=== PATIENT | male | born 1985 | race Caucasian/White ===

== ENCOUNTER 2023-09-21 15:11 | Outpatient (CLI) | payer BC, SELFPAY ==
--- NOTE | ~2023-09-21 | CT_ITS ---
EXAMINATION: CT brain wo con DATE: 09/21/2023 15:29 INDICATION: Dizziness TECHNIQUE: Computed tomography (CT) of the head was performed without intravenous contrast. The mA wa s adjusted according to patient size. Iterative reconstruction technique was employed. Exam dose: 60 5.33 mGy-cm total exam DLP. COMPARISON: None FINDINGS: No intracranial mass lesion or hemorrhage or cerebrovascular accident. No midline shift or mass effect. Normal ventricular size. No subdural or epidural hematoma. The orbital contents are unremarkable. The included mastoid air cells and paranasal sinuses are normally developed and aerated. No fracture or bone destruction of the cranial vault. IMPRESSION: Negative Reviewed, dictated and finalized at [facility] Reviewed, dictated and finalized at [facility]. IMPRESSION: Negative
== END 2023-09-21 15:12 | disposition home or self-care (01) ==
LOC: ANHIMG 15:12
PROVIDERS: Visit Provider Nurse Practitioner Family
DX: R42 Dizziness and giddiness (principal)
CPT/HCPCS: 70450

== ENCOUNTER 2023-10-06 00:19 | Emergency (ER) | payer BC, SELFPAY ==
--- NOTE | ~2023-10-06 | CT_ITS ---
Non-contrast CT scan of the Abdomen and Pelvis Clinical indication: Left ureteral stone Technique: 2.5 mm axial scans were obtained through the abdomen and pelvis without intravenous or or al contrast. Dose reduction technique was used on this scan by utilizing automated exposure control a nd iterative reconstruction technique. The dose-length product (DLP) was 605.40 mGy-cm. Findings: Images through the lung bases reveal no abnormalities. There is a 4 mm distal left ureteral stone. No hydronephrosis. No other renal or ureteral stones seen . No right hydronephrosis. The liver, spleen, pancreas, gallbladder, and adrenals appear normal. There is no aortic aneurysm. There is no evidence of bowel obstruction. Images through the pelvis were performed. There is no evidence of ascites or lymphadenopathy. Urinary bladder unremarkable. No pelvic mass seen. Impression: 4 mm distal left ureteral stone. No hydronephrosis. Reviewed, dictated and finalized at [facility]. Impression: 4 mm distal left ureteral stone. No hydronephrosis.
[2023-10-06 00:25] VITALS: BP 151/98; PULSE 78; RESP 20; TEMP 36.6; O2SAT 100
[2023-10-06 00:54] LABS: Basophils Percent Auto 0.3 % (0.2-1.2); Eosinophils Percent Auto 0.3 % (0-4.4); Hematocrit 47.1 % (42.0-52.0); Immature Granulocyte Absolute 0.04 K/mm3 (0.00-0.031); Immature Granulocyte Percent A 0.4 % (0-0.5); Lymphocytes Percent Auto 8.7 % (18.3-44.2); Mean Corpuscular Volume 88.2 fl (80-100); Mean Platelet Volume 9.4 fl (7.4-10.4); Monocytes Absolute Auto 0.7 K/mm3 (0.1-0.6); Monocytes Percent Auto 7.7 % (2.6-8.5); Neutrophils Absolute Auto 7.6 K/mm3 (1.3-6.7); Neutrophils Percent Auto 82.6 % (45.5-73.1); Platelet Count Result 205 k/mm3 (150-375); Red Blood Count 5.34 M/mm3 (4.6-6.20); Red Cell Distribution Width 12.4 % (11.5-14.5); White Blood Count 9.2 K/mm3 (4.5-10.0)
[2023-10-06 01:01] LABS: Alanine Aminotransferase 16 U/L (6-50); Albumin Level 4.3 g/dL (3.5-5.1); Alkaline Phosphatase 53 U/L (38-126); Anion Gap 12 mmol/L (4-12); Aspartate Amino Transferase 23 U/L (17-59); Bilirubin,Total 0.8 mg/dL (0.2-1.3); Blood Urea Nitrogen 17 mg/dL (9-20); Calcium 8.8 mg/dL (8.4-10.2); Carbon Dioxide 23 mmol/L (22-30); Chloride 99 mmol/L (98-107); Estimated CRCL calculation 101 ml/min; Estimated Glomerular Filt Rate > 60; Glucose 110 mg/dL (65-110); Lipase 56 U/L (23-300); Potassium 3.8 mmol/L (3.4-5.0); Sodium 134 mmol/L (137-145)
--- NOTE | 2023-10-06 01:05 | ED.ABDPAIN ---
HPI - Abdominal Pain General Chief Complaint: Abdominal Pain <BHARATHI Jain Last Filed: 10/06/23 03:03> Stated Complaint: abdominal pain <BHARATHI Jain Last Filed: 10/06/23 03:03> Time Seen by Provider: 10/06/23 00:22 <BHARATHI Jain Last Filed: 10/06/23 03:03> History of Present Illness HPI narrative: 38-year-old male presents to emergency department for left flank and abdominal pain that started today. Patient states the pain is intermittent and earlier today seemed to be radiating into his scrotum. He states currently the pain seems to have let up. He denies known aggravating or alleviating factors, vomiting or diarrhea. Does report associated nausea. Denies fever, dysuria or hematuria. denies prior abdominal surgeries. Does state get a kidney stone approximately 1 year ago. <BHARATHI Jain Last Filed: 10/06/23 03:03> Related Data Allergies/Adverse Reactions: Allergies Allergy/AdvReac Type Severity Reaction Status Date / Time No Known Allergies Allergy Verified 10/06/23 00:39 <BHARATHI Jain Last Filed: 10/06/23 03:03> Review of Systems Review of Systems: All systems reviewed & are unremarkable except as noted in HPI and below <BHARATHI Jain Last Filed: 10/06/23 03:03> Exam Narrative: GENERAL: Well-appearing, well-nourished, and in no acute distress. HEAD: Normocephalic, atraumatic. ENT: Nares clear, no rhinorrhea or epistaxis. Mucous membranes moist. NECK: Supple. CHEST: Clear to auscultation. No respiratory distress. HEART: Regular rate and rhythm. No murmur heard. Normal peripheral pulses. ABDOMEN: Diffuse intermittent abdominal tenderness to palpation without rebound, guarding or rigidity. Abdomen is soft. No significant CVA tenderness. EXTREMITIES: Normal range of motion. No edema. SKIN: Warm, dry, no rash. NEURO: No focal deficits. Alert and oriented x3 <BHARATHI Jain Last Filed: 10/06/23 03:03> Course Course Emergency Course: 03:00 - This patient was signed out to me by DARLING Ruvalcaba pending CT results. 03:34 - STAT Rad interpretation of CT abdomen pelvis demonstrates an ?obstructing 3 mm left [facility] stone. No hydronephrosis.? On re-evaluation, the patient states his pain is controlled. Will discharge with pain nausea medications, tamsulosin and recommendation for urology follow-up. I discussed the findings and recommendations with the patient. Discussed return and emergency precautions including signs/symptoms of acute abdomen and intractable vomiting. The patient voiced understanding and agreement with the plan. All questions answered to his satisfaction. <Souleymane Pruitt MD - Last Filed: 10/06/23 03:41> Vital Signs Vital signs: Vital Signs Temperature 97.8 F 10/06/23 00:25 Pulse Rate 78 10/06/23 00:25 Respiratory Rate 20 10/06/23 00:25 Blood Pressure 151/98 H 10/06/23 00:25 Pulse Oximetry 100 10/06/23 00:25 Temperature 97.8 F 10/06/23 00:25 Pulse Rate 78 10/06/23 00:25 Respiratory Rate 20 10/06/23 00:25 Blood Pressure 151/98 H 10/06/23 00:25 Pulse Oximetry 100 10/06/23 00:25 <Audelia Ruvalcaba PA-C - Last Filed: 10/06/23 03:03> Vital Signs Temperature 97.8 F 10/06/23 00:25 Pulse Rate 78 10/06/23 00:25 Respiratory Rate 20 10/06/23 00:25 Blood Pressure 151/98 H 10/06/23 00:25 Pulse Oximetry 100 10/06/23 00:25 Temperature 97.8 F 10/06/23 00:25 Pulse Rate 78 10/06/23 00:25 Respiratory Rate 20 10/06/23 00:25 Blood Pressure 151/98 H 10/06/23 00:25 Pulse Oximetry 100 10/06/23 00:25 <Souleymane Pruitt MD - Last Filed: 10/06/23 03:41> MDM - Abdominal Pain MDM Narrative Medical decision making narrative: 38-year-old male presents emergency department for left-sided abdominal pain and flank pain intermittently since today. Vital significant for blood pressure 151/98, otherwis
[2023-10-06 01:39] LABS: Add Urine Microscopic? YES; Appearance Urine Cloudy (Clear); Bacteria Urine None Seen /hpf; Bilirubin Urine Negative (Negative); Blood Urine 3+ (Negative); Calcium Oxalate Crystals Urine Present /hpf; Color Urine Dark Yellow (Yellow); Glucose Urine UA Negative (Negative); Ketones Urine Trace mg/dL (Negative); Leukocyte Esterase Ur Negative LEU/UL (Negative); Mucus Urine Present /lpf; Need Manual Microscopic Reviewed; Nitrate Urine Negative (Negative); Non Pathogenic Casts 0-2; Protein Urine 2+ mg/dL (Negative); RBC Urine 51-100 /hpf (0-2); Specific Grav Ur 1.039 (1.001-1.035); Squamous Epithelial Cell Urine None Seen /hpf (Few); WBC Urine 0-5 /hpf (0-3); pH Urine 5.5 (5.0-9.0)
[2023-10-06 03:50] VITALS: BP 118/87; PULSE 76; RESP 17; O2SAT 98
== END 2023-10-06 03:50 | disposition home or self-care (01) ==
PROVIDERS: Physician Assistant; Emergency Provider Preventive Medicine Aerospace Medicine
DX: N20.1 Calculus of ureter (principal); R10.32 Left lower quadrant pain; R31.9 Hematuria, unspecified
CPT/HCPCS: 36415; 74176; 80053; 81001; 83690; 85025; 99284

== ENCOUNTER 2023-10-10 10:01 | Emergency (ER) | payer BC, SELFPAY ==
[2023-10-10 10:03] VITALS: BP 151/94; PULSE 94; RESP 19; TEMP 36.3; O2SAT 99
--- NOTE | 2023-10-10 10:43 | PC.NURSE ---
Patient came to the triage desk and states there has to be something you can do . I apologized to patient and states he will have to wait for a room to be seen and given medication. Patient then states well im going to go outside and call 911 to get some fucking pain medication . patient then walked out side.
[2023-10-10 11:02] LABS: Add Urine Microscopic? YES; Appearance Urine Turbid (Clear); Bacteria Urine None Seen /hpf; Bilirubin Urine 1+ (Negative); Blood Urine 3+ (Negative); Calcium Oxalate Crystals Urine Present /hpf; Color Urine Dark Yellow (Yellow); Glucose Urine UA Negative (Negative); Ketones Urine Trace mg/dL (Negative); Leukocyte Esterase Ur Trace LEU/UL (Negative); Need Manual Microscopic Reviewed; Nitrate Urine Negative (Negative); Protein Urine 2+ mg/dL (Negative); RBC Urine >100 /hpf (0-2); Specific Grav Ur 1.035 (1.001-1.035); Squamous Epithelial Cell Urine None Seen /hpf (Few); WBC Urine 0-5 /hpf (0-3); pH Urine 5.5 (5.0-9.0)
== END 2023-10-10 10:43 | disposition left against medical advice (07) ==
LOC: ANHED 10:50
PROVIDERS: Emergency Provider Emergency Medicine
DX: N20.0 Calculus of kidney (principal)
CPT/HCPCS: 81001; 99199

== ENCOUNTER 2023-10-10 11:05 | Emergency (ER) | payer BC, SELFPAY ==
[2023-10-10 11:13] VITALS: BP 129/95; PULSE 85; RESP 18; TEMP 36.6; O2SAT 100
--- NOTE | 2023-10-10 11:52 | PC.NURSE ---
Pt presents with aggressive speech with RN. Requesting pain medication, rocking on stretcher. States I'm in a lot of fucking pain. Can't you give me anything? . RN informed pt that has to be seen by [facility] unable to give pain med without an order Pt replies This is fucking bull shit! I've been here an hour. I need something for pain now!! Mother at bedside states This is ridiculous!! RN apologized for wait time, informed unfortunately the ER is busy the doctor is aware pt is here and in pain. Pt & mother remain frustrated.
--- NOTE | 2023-10-10 12:25 | ED.GENADULT ---
HPI - General Adult General Chief complaint: Urogenital-Male Stated complaint: kidney stones Time Seen by Provider: 10/10/23 11:57 History of Present Illness HPI narrative: This is a 38-year-old male with history of opiate use disorder presenting for kidney stone. He was diagnosed with a 4 mm kidney stone at the [facility] several days ago. Since then he has been trying to pass the stone without taking any pain medication. Now he is having issues with severe pain and nausea and vomiting. Patient denies fevers chills or urinary symptoms. Patient is more willing to take pain medications now that he is in agony. Related Data Allergies Allergy/AdvReac Type Severity Reaction Status Date / Time No Known Allergies Allergy Verified 10/10/23 10:01 Exam Narrative: APPEARANCE: Patient is in pain Head: atraumatic. EYES: EOMI, NOSE: Atraumatic NECK: Trachea midline RESPIRATORY: No increased rate of breathing, ctab CARDIOVASCULAR: RRR, ABDOMINAL: Voluntary guarding, soft nontender left CVA tenderness MUSCULOSKELETAl: No obvious deformities NEURO: Alert. Moving 4/4 extremities SKIN:: Warm, dry. Normal color PSYCHIATRIC: Normal affect Course Vital Signs Vital signs: Vital Signs Temperature 97.9 F 10/10/23 11:13 Pulse Rate 85 10/10/23 11:13 Respiratory Rate 18 10/10/23 11:13 Blood Pressure 129/95 H 10/10/23 11:13 Pulse Oximetry 100 10/10/23 11:13 Temperature 97.9 F 10/10/23 11:13 Pulse Rate 85 10/10/23 11:13 Respiratory Rate 18 10/10/23 11:13 Blood Pressure 129/95 H 10/10/23 11:13 Pulse Oximetry 100 10/10/23 11:13 Medical Decision Making [facility] Narrative Medical decision making narrative: -Course: 38-year-old male bouncing back to the ED with uncontrolled kidney pain after trying to eschew pain medication. Patient given Dilaudid Toradol Tylenol and Zofran with improvement symptoms. Patient provided prescriptions for these medications. Patient be discharged to follow-up with urology. Given return precautions. No evidence of infection. -DDX includes but is not limited to: Kidney stone, infected stone -Co-morbidities complicating care: History of opiate use disorder -Independent interpretation of studies: White count 9.8. Metabolic panel unremarkable. Urine with greater than 100 red blood cells. 0-5 white blood cells. -Interventions: 1 mg Dilaudid, 15 mg Toradol, 1000 mg Tylenol, 4 mg Zofran -Shared decision making / Disposition: Discharged -RX Motrin, Tylenol, oxycodone, Zofran, Flomax Vital Signs Vital Signs: Vital Signs Temperature 97.9 F 10/10/23 11:13 Pulse Rate 85 10/10/23 11:13 Respiratory Rate 18 10/10/23 11:13 Blood Pressure 129/95 H 10/10/23 11:13 Pulse Oximetry 100 10/10/23 11:13 Temperature 97.9 F 10/10/23 11:13 Pulse Rate 85 10/10/23 11:13 Respiratory Rate 18 10/10/23 11:13 Blood Pressure 129/95 H 10/10/23 11:13 Pulse Oximetry 100 10/10/23 11:13 Lab Data 10/10/23 12:28 10/10/23 12:28 Labs: Lab Results 10/10/23 Range/Units 12:28 WBC 9.8 (4.5-10.0) K/mm3 RBC 5.18 (4.6-6.20) M/mm3 Hgb 15.8 (14.0-18.0) g/dL Hct 45.1 (42.0-52.0) % MCV 87.1 (80-100) fl MCH 30.5 (26-34) pg MCHC 35.0 (32-36) g/dl RDW 12.2 (11.5-14.5) % Plt Count 269 (150-375) k/mm3 MPV 9.3 (7.4-10.4) fl Immature Gran % (Auto) 0.4 (0-0.5) % Neut % (Auto) 78.9 H (45.5-73.1) % Lymph % (Auto) 12.4 L (18.3-44.2) % Trigg % (Auto) 7.4 (2.6-8.5) % Eos % (Auto) 0.6 (0-4.4) % Baso % (Auto) 0.3 (0.2-1.2) % Lymph # (Auto) 1.21 (0.9-3.2) K/mm3 Trigg # (Auto) 0.7 H (0.1-0.6) K/mm3 Eos # (Auto) 0.1 (0-0.3) K/mm3 Baso # (Auto) 0.0 (0.0-0.1) K/mm3 Abs Immat Gran (auto) 0.04 H (0.00-0.031) K/mm3 Absolute Neuts (auto) 7.7 H (1.3-6.7) K/mm3 Absolute Nucleated RBC 0.000 (0.0-0.012) K/mm3 Nucleated RBC % 0.0 (0.0-0.2) % Sodium 137 (137-145) mmol/L Potassium 4.0
[2023-10-10] MEDS: ACETAMINOPHEN 500 MG TABLET 1000 MG PO (12:34)
[2023-10-10 12:35] LABS: Basophils Percent Auto 0.3 % (0.2-1.2); Eosinophils Absolute Auto 0.1 K/mm3 (0-0.3); Eosinophils Percent Auto 0.6 % (0-4.4); Hematocrit 45.1 % (42.0-52.0); Hemoglobin 15.8 g/dL (14.0-18.0); Immature Granulocyte Absolute 0.04 K/mm3 (0.00-0.031); Immature Granulocyte Percent A 0.4 % (0-0.5); Lymphocytes Absolute Auto 1.21 K/mm3 (0.9-3.2); Lymphocytes Percent Auto 12.4 % (18.3-44.2); Mean Corpuscular Hemoglobin 30.5 pg (26-34); Mean Corpuscular Volume 87.1 fl (80-100); Mean Platelet Volume 9.3 fl (7.4-10.4); Monocytes Absolute Auto 0.7 K/mm3 (0.1-0.6); Monocytes Percent Auto 7.4 % (2.6-8.5); Neutrophils Absolute Auto 7.7 K/mm3 (1.3-6.7); Neutrophils Percent Auto 78.9 % (45.5-73.1); Platelet Count Result 269 k/mm3 (150-375); Red Blood Count 5.18 M/mm3 (4.6-6.20); Red Cell Distribution Width 12.2 % (11.5-14.5); White Blood Count 9.8 K/mm3 (4.5-10.0)
[2023-10-10] MEDS: KETOROLAC 15 MG/ML VIAL (*BKC) IV PUSH (12:35)
[2023-10-10] MEDS: ONDANSETRON INJ 4 MG/2 ML VIAL IV PUSH (12:35)
[2023-10-10] MEDS: HYDROmorphone HCL INJ (*CRX) 1 MG/ML SYR IV PUSH (12:36)
[2023-10-10 12:43] LABS: Alanine Aminotransferase 18 U/L (6-50); Albumin Level 4.4 g/dL (3.5-5.1); Alkaline Phosphatase 61 U/L (38-126); Anion Gap 9 mmol/L (4-12); Aspartate Amino Transferase 29 U/L (17-59); Bilirubin,Total 0.7 mg/dL (0.2-1.3); Blood Urea Nitrogen 16 mg/dL (9-20); Calcium 9.6 mg/dL (8.4-10.2); Carbon Dioxide 27 mmol/L (22-30); Chloride 101 mmol/L (98-107); Estimated CRCL calculation 92 ml/min; Estimated Glomerular Filt Rate > 60; Glucose 106 mg/dL (65-110); Sodium 137 mmol/L (137-145)
--- NOTE | 2023-10-10 12:43 | PC.NURSE ---
Pt more cooperative & speech is appropriate with RN. States pain has decreased. Resting with regular resp. Meds given
[2023-10-10 13:16] VITALS: BP 132/89; PULSE 88; RESP 19; O2SAT 98
== END 2023-10-10 13:17 | disposition home or self-care (01) ==
PROVIDERS: Emergency Provider Emergency Medicine
DX: N20.0 Calculus of kidney (principal)
CPT/HCPCS: 36415; 80053; 85025; 96374; 96375; 99284; A9270; J1170; J1885; J2405

== ENCOUNTER 2024-04-08 10:01 | Emergency (ER) | payer BC, SELFPAY ==
--- NOTE | 2024-04-08 10:02 | ED_ITS ---
HPI - URI/Sore Throat General Chief Complaint: Upper Respiratory Infection Stated Complaint: Headache/Sinus Time Seen by Provider: 04/08/24 10:40 Source: patient, RN notes reviewed and old records reviewed Mode of arrival: ambulatory Limitations: no limitations History of Present Illness HPI Narrative: 38-year-old male presents to the [facility] with complaints cough, fevers since Monday. Tried Patient did not receive his flu vaccine this Onset (ago): day(s) (3) Treatments prior to arrival: acetaminophen and ibuprofen Related Data Allergies Allergy/AdvReac Type Severity Reaction Status Date / Time No Known Allergies Allergy Verified 10/10/23 10:01 Review of Systems Review of Systems: All systems reviewed & are unremarkable except as noted in HPI and below Constitutional: Constitutional: Reports as per HPI, Reports chills, Reports fatigue and Reports fever(s) ENT: Reports system reviewed and no additional complaints, except as documented Cardiovascular: Cardiovascular: Reports no additional cardiovascular complaints, Denies chest pain and Denies dyspnea Respiratory: Respiratory: Reports as per HPI, Denies chest congestion, Reports cough and Denies dyspnea Musculoskeletal: Musculoskeletal: Reports no additional musculoskeletal complaints Integumentary/Breasts: Skin/Breast: Reports system reviewed and no additional complaints, except as docu PMFSH Comments At the time of my signature, I reviewed and agree with the nursing past medical, surgical, social, and family history. There is no relevant family history pertinent to the patient complaint. Exam Const: General: cooperative, no acute distress, well developed, alert, tired appearing and well nourished Nutritional Appearance: well nourished Orientation/consciousness: patient oriented x3 Limitations: no limitations HENMT: Head: normal to inspection Ears: hearing grossly normal bilaterally, external ears normal, TM's normal bilaterally, EAC's normal, mastoids normal and no periauricular adenopathy Mouth: Yes Normal oral and palatal mucosa present, Yes lip normal, Yes tongue normal and Yes moist mucous membranes Throat: posterior oropharynx normal, uvula midline and no uvular edema Eyes: General: appearance normal, both eyes and all related structures Alignment and Position: alignment normal Neck: Neck: normal visual inspection, full ROM, no lymphadenopathy and no meningeal signs Chest: Chest palpation & inspection: normal inspection of the chest Resp: Effort & Inspection: normal respiratory effort and able to speak in complete sentences Auscultation: clear to auscultation bilaterally, no crackles, no rales, no rhonchi and no wheezes Cardio: Rate: regular rate Skin: General skin exam: normal color and no rashes or lesions noted Neuro: General: patient oriented x3, gait normal, moves all extremities and no meningeal signs Cognition (Neuro): normal cognition Speech: normal speech Gait exam (Neuro): Normal gait present Extrem: General: normal to inspection, full ROM, capillary refill normal and normal gait Psych: Appearance: grossly normal and well kempt Mental Status: mental status grossly normal Speech and movement: Normal speech and movement present and Clear speech present Affect: normal affect Attitude: cooperative Course Course Level of Care: Express Care Visit Vital Signs Vital signs: Vital Signs Temperature 98.0 F 04/08/24 10:07 Pulse Rate 75 04/08/24 10:07 Respiratory Rate 16 04/08/24 10:07 Blood Pressure 133/78 04/08/24 10:07 Pulse Oximetry 100 04/08/24 10:07 Oxygen Delivery Room Air 04/08/24 10:07 Temperature 98.0 F 04/08/24 10:07 Pulse Rate 75 04/08/24 10:07 Respiratory Rate 16 04/08/24 10:07 Blood Pressure 133/78 04/08/24 10:07 Pulse Oximetry 100 04/08/24 10:07 Oxygen Delivery Room Air 04/08/24 10:07 Reviewed MDM - URI/Sore Throat MDM Narrative Medical decision making narrative: Patient sitting comfortably exam. Vitals stable. Patient in no acute distress. Patient presents with 3 day history of URI symptoms. Patient is flu A positive. Patient is appropriate for outpatient treatment with close follow-up. Discharge instructions reviewed with patient, as well as provided in writing per nursing staff. The instructions also include specific and strict return/GO TO THE ER as well as f/u information. All questions have been answered, and the patient deny any further questions with discharge and discharge plan. Some parts of this dictation were generated by voice recognition software and may contain typographical and/or grammatical inaccuracies. Differential Diagnosis Differential diagnosis: Likely upper respiratory infection, otitis media, sin usitis, viral infection and influenza Lab Data Labs: Lab Results 04/08/24 Range/Units 10:31 POC Influenza A Ag Positive (Negative) POC Influenza B Ag Negative (Negative) POC SARS CoV-2 Ag Negative (Negative) Reviewed Critical Care Time Critical Care Time Critical Care Time: No Discharge Plan Discharge Clinical Impression: Influenza A Patient Disposition: Home, Self-Care Condition: Stable Instructions: Antibiotic Form, Influenza (ED) Additional Instructions: Your rapid COVID test were negative Your rapid flu test was positive for influenza A Your symptoms are due to a viral illness, which is not treated with antibiotics. Typically viral infections last 7-10 days, can linger for couple of weeks. It is very important to treat your symptoms. Drink plenty of water, Gatorade, Pedialyte, ice pops or Jell-O. -Alternate Tylenol and Motrin per package directions for fever or pain. You can alternate every 4 hours -You can also use Mucinex. Be sure to drink plenty of water with this medication at least 8 ounces with every dose and it is important to drink 8 to 10 glasses of water per day. Water is a natural decongestant -Eat and drink things that are easy to swallow, like tea or soup, or popsicles. -Oral rinses such as: Salt water gargles and/or may use topical anesthetic (eg. Chloraseptic spray) or lozenges to relieve dryness or throat pain). -Frequent hand washing or hand children's service worker is one of the best ways to prevent spread of infection. -Using a vaporizer or humidifier at night will also help thin secretions and help with coughing up phlegm. -Follow up with primary care provider in 7-10 days if condition is not improving - For new or worsening symptoms go directly to the nearest ER Patient Language: Romansh Prescriptions: No Action oxycodone-acetaminophen [Endocet] 5-325 mg tablet 1 tablet PO Q12H PRN (Reason: pain) Qty: 10 0RF ondansetron 4 mg tablet,disintegrating 4 mg PO Q8H PRN (Reason: nausea and vomiting) Qty: 15 0RF tamsulosin 0.4 mg capsule 0.4 mg PO DAILY 14 Days Qty: 14 0RF ibuprofen 800 mg tablet 800 mg PO TID PRN (Reason: pain) 7 Days Qty: 21 0RF acetaminophen 500 mg tablet 1,000 mg PO TID PRN (Reason: valerie) 7 Days Qty: 42 0RF tamsulosin [Flomax] 0.4 mg capsule 0.4 mg PO DAILY Qty: 30 0RF ondansetron 4 mg tablet,disintegrating 4 mg PO Q8H PRN (Reason: nausea and vomiting) Qty: 30 0RF oxycodone 5 mg tablet 5 mg PO Q4H PRN (Reason: pain) Qty: 14 0RF Follow-up/Referrals: UNKNOWN,DOCTOR [Non-Staff] - Stand Alone Forms: Work/School Release IP Time of Disposition: 10:48
[2024-04-08 10:07] VITALS: BP 133/78; PULSE 75; RESP 16; TEMP 36.7; O2SAT 100
[2024-04-08 10:33] LABS: EDCOVIDSCREEN Negative (Negative); EDINFLUASCREEN Positive (Negative); EDINFLUBSCREEN Negative (Negative)
== END 2024-04-08 10:57 | disposition home or self-care (01) ==
PROVIDERS: Emergency Provider Nurse Practitioner
DX: J10.1 Influenza due to other identified influenza virus with other respiratory manifestations (principal); Z20.822 Contact with and (suspected) exposure to COVID-19
CPT/HCPCS: 87426; 87804; 99212; G0463

== ENCOUNTER 2024-05-23 11:27 | Emergency (ER) | payer BC, SELFPAY ==
--- NOTE | 2024-05-23 11:29 | ED_ITS ---
HPI - URI/Sore Throat General Chief Complaint: Upper Respiratory Infection Stated Complaint: sinus congestion Time Seen by Provider: 05/23/24 11:43 Source: patient, RN notes reviewed and old records reviewed Mode of arrival: ambulatory Limitations: no limitations History of Present Illness HPI Narrative: 38-year-old male presents to the [facility] with symptoms that started last night approximately 12-14 hours ago. Patient reports sinus congestion, feeling feverish and a cough. States he has taken Christal-Manteno cold and Sinus. Patient is has a concern for influenza B due to girlfriend tested positive a couple days ago. Treatments prior to arrival: cold medicine Related Data Allergies Allergy/AdvReac Type Severity Reaction Status Date / Time No Known Allergies Allergy Verified 05/23/24 11:31 Review of Systems Review of Systems: All systems reviewed & are unremarkable except as noted in HPI and below Constitutional: Constitutional: Reports no additional constitutional complaints ENT: Reports as per HPI Cardiovascular: Cardiovascular: Reports no additional cardiovascular complaints, Denies chest pain and Denies dyspnea Respiratory: Respiratory: Reports as per HPI, Denies chest congestion, Reports cough and Denies dyspnea Musculoskeletal: Musculoskeletal: Reports no additional musculoskeletal complaints Integumentary/Breasts: Skin/Breast: Reports system reviewed and no additional complaints, except as docu PMFSH Comments At the time of my signature, I reviewed and agree with the nursing past medical, surgical, social, and family history. There is no relevant family history pertinent to the patient complaint. Exam Const: General: cooperative, healthy appearing, comfortable, no acute distress, well developed, alert and well nourished Nutritional Appearance: well nourished Orientation/consciousness: patient oriented x3 Limitations: no limitations HENMT: Head: normal to inspection Ears: hearing grossly normal bilaterally, external ears normal, TM's normal bilaterally, EAC's normal, mastoids normal and no periauricular adenopathy Mouth: Yes Normal oral and palatal mucosa present, Yes lip normal, Yes tongue normal and Yes moist mucous membranes Throat: posterior oropharynx normal, uvula midline and no uvular edema Eyes: General: appearance normal, both eyes and all related structures Alignment and Position: alignment normal Neck: Neck: normal visual inspection, full ROM, no lymphadenopathy and no meningeal signs Chest: Chest palpation & inspection: normal inspection of the chest Resp: Effort & Inspection: normal respiratory effort and able to speak in complete sentences Auscultation: clear to auscultation bilaterally, no crackles, no rales, no rhonchi and no wheezes Cardio: Rate: regular rate Skin: General skin exam: normal color and no rashes or lesions noted Neuro: General: patient oriented x3, gait normal, moves all extremities and no meningeal signs Cognition (Neuro): normal cognition Speech: normal speech Gait exam (Neuro): Normal gait present Extrem: General: normal to inspection, full ROM, capillary refill normal and normal gait Psych: Appearance: grossly normal and well kempt Mental Status: mental status grossly normal Speech and movement: Normal speech and movement present and Clear speech present Affect: normal affect Attitude: cooperative Course Course Level of Care: Express Care Visit Vital Signs Vital signs: Vital Signs Temperature 96.1 F L 05/23/24 11:38 Pulse Rate 65 05/23/24 11:38 Respiratory Rate 16 05/23/24 11:38 Blood Pressure 120/83 05/23/24 11:38 Pulse Oximetry 99 05/23/24 11:38 Oxygen Delivery Room Air 05/23/24 11:38 Temperature 96.1 F L 05/23/24 11:38 Pulse Rate 65 05/23/24 11:38 Respiratory Rate 16 05/23/24 11:38 Blood Pressure 120/83 05/23/24 11:38 Pulse Oximetry 99 05/23/24 11:38 Oxygen Delivery Room Air 05/23/24 11:38 Reviewed MDM - URI/Sore Throat MDM Narrative Medical decision making narrative: Patient sitting comfortably in exam room. Nontoxic, vitals stable. Patient presents with less than 24 hours of URI symptoms, flu exposure. Patient is negative in clinic. Advised patient [id number] products, close follow-up Patient appropriate for outpatient treatment with close follow-up Discharge instructions reviewed with patient, as well as provided in writing per nursing staff. The instructions also include specific and strict return/GO TO THE ER as well as f/u information. All questions have been answered, and the patient deny any further questions with discharge and discharge plan. Some parts of this dictation were generated by voice recognition software and may contain typographical and/or grammatical inaccuracies. Differential Diagnosis Differential diagnosis: Likely upper respiratory infection, otitis media, sinusitis, viral infection and influenza Lab Data Labs: Lab Results 03/27/25 Range/Units 12:08 POC Influenza A Ag Negative (Negative) POC Influenza B Ag Negative (Negative) POC SARS CoV-2 Ag Negative (Negative) Reviewed Critical Care Time Critical Care Time Critical Care Time: No Discharge Plan Discharge Clinical Impression: Upper respiratory infection Qualifiers: URI type: unspecified viral URI Qualified Code(s): J06.9 - Acute upper respiratory infection, unspecified Patient Disposition: Home, Self-Care Condition: Stable Instructions: Antibiotic Form, Upper Respiratory Infection (ED), Viral Syndrome (ED) Additional Instructions: Your rapid COVID test were negative Your rapid flu test was negative Your flu and COVID test were negative in clinic, it may be too early to test. Is recommended you take the at home test tomorrow or the next day if you have concerns for flu or COVID. Your symptoms are likely due to a viral illness, which is not treated with antibiotics. Typically viral infections last 7-10 days, can linger for couple of weeks. It is very important to treat your symptoms. Drink plenty of water, Gatorade, Pedialyte, ice pops or Jell-O. -Alternate Tylenol and Motrin per package directions for fever or pain. You can alternate every 4 hours -Antihistamine medication such as Zyrtec/Claritin/Kristal during the day can help improve symptoms. -doing daily nasal irrigations can help relieve pressure your sinuses. Things like a Neti pot -Use Flonase twice a day for 5 days then daily to help reduce the inflammation and dry up your sinuses. -You can also use Mucinex. Be sure to drink plenty of water with this medication at least 8 ounces with every dose and it is important to drink 8 to 10 glasses of water per day. Water is a natural decongestant -Eat and drink things that are easy to swallow, like tea or soup, or popsicles. -Oral rinses such as: Salt water gargles and/or may use topical anesthetic (eg. Chloraseptic spray) or lozenges to relieve dryness or throat pain). -Frequent hand washing or hand independent sales representative is one of the best ways to prevent spread of infection. -Using a vaporizer or humidifier at night will also help thin secretions and help with coughing up phlegm. -Follow up with primary care provider in 7-10 days if condition is not improving - For new or worsening symptoms go directly to the nearest ER Patient Language: Georgian Follow-up/Referrals: UNKNOWN,DOCTOR [Primary Care Provider] - Stand Alone Forms: Work/School Release IP Time of Disposition: 12:22
[2024-05-23 11:38] VITALS: BP 120/83; PULSE 65; RESP 16; TEMP 35.6; O2SAT 99
[2024-05-23 12:56] LABS: EDCOVIDSCREEN Negative (Negative); EDINFLUASCREEN Negative (Negative); EDINFLUBSCREEN Negative (Negative)
== END 2024-05-23 12:26 | disposition home or self-care (01) ==
PROVIDERS: Emergency Provider Nurse Practitioner
DX: J06.9 Acute upper respiratory infection, unspecified (principal); Z20.822 Contact with and (suspected) exposure to COVID-19
CPT/HCPCS: 87426; 87804; 99212; G0463

== ENCOUNTER 2024-07-04 13:08 | Emergency (ER) | payer OTHER, MEDICAID, SELFPAY ==
--- NOTE | 2024-07-04 13:13 | ED_ITS ---
HPI - Dental/Oral General Chief complaint: Dental/Oral Stated complaint: right upper tooth pain Time Seen by Provider: 07/04/24 13:29 Source: patient, RN notes reviewed and old records reviewed Mode of arrival: ambulatory Limitations: no limitations History of Present Illness HPI Narrative: 38-year-old presents to the [facility] with right upper molar pain for the last 2-3 days. Has a history of the medial malleolar being broken to the right upper jaw. Decay is noted. Surrounding erythema is noted. No facial swelling, erythema noted. Related Data Allergies Allergy/AdvReac Type Severity Reaction Status Date / Time No Known Allergies Allergy Verified 07/04/24 13:20 Review of Systems Review of Systems: All systems reviewed & are unremarkable except as noted in HPI and below Constitutional: Constitutional: Reports no additional constitutional complaints ENT: Reports as per HPI and Reports dental pain Cardiovascular: Cardiovascular: Reports no additional cardiovascular complaints, Denies chest pain and Denies dyspnea Respiratory: Respiratory: Reports no additional respiratory complaints, Denies chest congestion, Denies cough and Denies dyspnea Musculoskeletal: Musculoskeletal: Reports no additional musculoskeletal complaints Integumentary/Breasts: Skin/Breast: Reports system reviewed and no additional complaints, except as docu PMFSH Comments At the time of my signature, I reviewed and agree with the nursing past medical, surgical, social, and family history. There is no relevant family history pertinent to the patient complaint. Exam Const: General: cooperative, healthy appearing, comfortable, no acute distress, well developed, alert and well nourished Nutritional Appearance: well nourished Orientation/consciousness: patient oriented x3 Limitations: no limitations HENMT: Head: normal to inspection Ears: hearing grossly normal bilaterally, external ears normal, TM's normal bilaterally, EAC's normal, mastoids normal and no periauricular adenopathy Teeth and gingiva: caries (Tooth 2. With decay below gumline), fair dentition and gingiva abnormal edematous (Right upper) Throat: posterior oropharynx normal, uvula midline and no uvular edema Eyes: General: appearance normal, both eyes and all related structures Alignment and Position: alignment normal Neck: Neck: normal visual inspection, full ROM, no lymphadenopathy and no meningeal signs Chest: Chest palpation & inspection: normal inspection of the chest Resp: Effort & Inspection: normal respiratory effort and able to speak in complete sentences Cardio: Rate: regular rate Skin: General skin exam: normal color and no rashes or lesions noted Neuro: General: patient oriented x3, gait normal, moves all extremities and no meningeal signs Cognition (Neuro): normal cognition Speech: normal speech Gait exam (Neuro): Normal gait present Extrem: General: normal to inspection, full ROM, capillary refill normal and normal gait Psych: Appearance: grossly normal and well kempt Mental Status: mental status grossly normal Speech and movement: Normal speech and movement present and Clear speech present Affect: normal affect Attitude: cooperative Course Course Level of Care: Express Care Visit Vital Signs Vital signs: Vital Signs Temperature 98 F 07/04/24 13:14 Pulse Rate 71 07/04/24 13:14 Respiratory Rate 14 07/04/24 13:14 Blood Pressure 124/81 07/04/24 13:14 Pulse Oximetry 98 07/04/24 13:14 Oxygen Delivery Room Air 07/04/24 13:14 Temperature 98 F 07/04/24 13:14 Pulse Rate 71 07/04/24 13:14 Respiratory Rate 14 07/04/24 13:14 Blood Pressure 124/81 07/04/24 13:14 Pulse Oximetry 98 07/04/24 13:14 Oxygen Delivery Room Air 07/04/24 13:14 Reviewed MDM - Dental/Oral MDM Narrative Medical decision making narrative: Patient sitting in exam room. Patient is nontoxic, vitals stable. Patient in no acute distress. Patient presents with pain and swelling to the right upper molar. Swelling is noted to the surrounding gingiva of a fractured tooth with decay. Patient appropriate for outpatient treatment with close follow-up with a dental provider Discharge instructions reviewed with patient, as well as provided in writing per nursing staff. The instructions also include specific and strict return/GO TO THE ER as well as f/u information. All questions have been answered, and the patient deny any further questions with discharge and discharge plan. Some parts of this dictation were generated by voice recognition software and may contain typographical and/or grammatical inaccuracies. Differential Diagnosis Differential diagnosis: Likely gingival abscess, dental caries, toothache, dental abscess and fracture of tooth Critical Care Time Critical Care Time Critical Care Time: No Discharge Plan Discharge Clinical Impression: Dental caries, Dental infection Patient Disposition: Home Condition: Stable Instructions: Antibiotic Form, Dental Abscess (ED) Additional Instructions: Finish the entire course of antibiotics & use the mouthwash. After every time you eat be sure to use salt water rinses. Apply ice to face to help with pain. Take Tylenol alternating with Motrin as needed for pain. You can alternate every 4 hours You need to follow-up with a dental provider as soon as possible for further evaluation and treatment. A list of dental providers has been given to you Follow up with a Primary Care Provider (PCP) about medical needs. A PCP can help keep you healthy by preventive medicine and screening. Go to the ER for New or worsening symptoms. Patient Language: Syrian Prescriptions: New amoxicillin 875 mg tablet 875 mg PO Q12H Qty: 20 0RF Follow-up/Referrals: PHYSICIAN,SPECIAL EVENTS DIRECTOR [Primary Care Provider] - Stand Alone Forms: Work/School Release IP Time of Disposition: 13:47
[2024-07-04 13:14] VITALS: BP 124/81; PULSE 71; RESP 14; TEMP 36.6; O2SAT 98
== END 2024-07-04 13:50 | disposition home or self-care (01) ==
PROVIDERS: Emergency Provider Nurse Practitioner
DX: K02.9 Dental caries, unspecified (principal); K04.7 Periapical abscess without sinus
CPT/HCPCS: 99213; G0463

== ENCOUNTER 2025-02-12 14:04 | Emergency (ER) | payer OTHER, MEDICAID, SELFPAY ==
[2025-02-12 14:20] VITALS: BP 135/77; PULSE 88; RESP 18; TEMP 36.7; O2SAT 100
--- NOTE | 2025-02-12 14:30 | ED_ITS ---
HPI - Dental/Oral General Chief complaint: Dental/Oral Stated complaint: tooth pain Time Seen by Provider: 02/12/25 14:05 Source: patient Mode of arrival: ambulatory Limitations: no limitations History of Present Illness HPI Narrative: Patient is a 39-year-old male who presents with right upper dental pain has started hurting yesterday. Patient has broken infected tooth. Patient was seen here in June for the same tooth. Patient has not been to the dentist. Denies any fever, chills, nausea, vomiting for diarrhea. Related Data Allergies Allergy/AdvReac Type Severity Reaction Status Date / Time No Known Allergies Allergy Verified 02/12/25 14:12 Review of Systems 2 Review of Systems: All systems reviewed & are unremarkable except as noted in HPI and below Constitutional: Constitutional: Denies body ache(s), Denies fever(s), Denies headache(s), Denies malaise and Denies weakness Eyes: Eyes: Denies loss of vision ENT: Denies otalgia, Reports facial pain (jaw), Denies headache(s), Denies nasal discharge, Denies sinus pain and Denies sore throat Cardiovascular: Cardiovascular: Denies chest pain, Denies irregular heart rhythm and Denies dyspnea Respiratory: Respiratory: Denies dyspnea Gastrointestinal: Gastrointestinal: Denies abdominal pain, Denies melena, Denies hematochezia, Denies diarrhea, Denies nausea and Denies vomiting Musculoskeletal: Musculoskeletal: Denies back pain, Denies myalgias and Denies arthralgias Integumentary/Breasts: Skin/Breast: Denies pruritus and Denies rash Neurologic: Denies headache(s), Denies loss of vision and Denies weakness Psychiatric: Psychiatric: Reports no additional psychiatric complaints PMFSH Comments At time of signature, agree with nursing past medical, surgical, social and family history. There is no relevant family history pertinent to the presenting complaint. Exam 2 Const: General: cooperative, healthy appearing, comfortable, no acute distress and well nourished Nutritional Appearance: well nourished O rientation/consciousness: patient oriented x3 Limitations: no limitations HENMT: Head: normal to inspection, normocephalic and atraumatic Ears: h earing grossly normal bilaterally, external ears normal, TM's normal bilaterally and mastoids normal bilaterally Face/Nose/Sinus: Normal external nose present, normal facial exam and face symmetric Face and sinus: normal facial exam and face symmetric Mouth: Yes Normal oral and palatal mucosa present, Yes lip normal, Yes tongue normal, Yes Normal salivary glands and ducts present and Yes moist mucous membranes Teeth image: 1. The tooth in question is broken and decaying and the gum is swollen and tender around it. There is no facial swelling, cervical or submandibular lymphadenopathy. The patient appears uncomfortable and in pain. Other: The tooth in question is very carious and the gum is swollen and tender around it. There is no facial swelling, cervical or submandibular lymphadenopathy. The patient appears uncomfortable and in pain. Eyes: General: appearance normal, both eyes and all related structures A lignment and Position: alignment normal and position normal Periorbital: p eriorbital findings normal Eyelids: eyelids normal Pupils: Equal, round and reactive pupils present EOM: EOMs intact bilaterally Neck: Neck: normal visual inspection, full ROM, no lymphadenopathy and supple Chest: Chest palpation & inspection: normal inspection of the chest Resp: Effort & Inspection: normal respiratory effort and able to speak in complete sentences Auscultation: clear to auscultation bilaterally Cardio: Rate: regular rate Rhythm: regular rhythm Heart sounds: S1 normal heart sound present and S2 normal heart sound present GI: Inspection: normal to inspection Skin: General skin exam: normal color and no rashes or lesions noted Neuro: General: patient oriented x3 and moves all extremities Cranial nerves: Yes Equal, round and reactive pupils present Speech: normal speech Gait exam (Neuro): Normal gait present Extrem: General: normal to inspection, full ROM and no edema Psych: Appearance: grossly normal and well kempt Mental Status: mental status grossly normal Speech and movement: Normal speech and movement present Affect: normal affect Attitude: cooperative Thought process: Normal thought process present Course Course Level of Care: Express Care Visit Vital Signs Vital signs: Vital Signs Temperature 36.7 C 02/12/25 14:20 Pulse Rate 88 02/12/25 14:20 Respiratory Rate 18 02/12/25 14:20 Blood Pressure 135/77 02/12/25 14:20 Pulse Oximetry 100 02/12/25 14:20 Temperature 36.7 C 02/12/25 14:20 Pulse Rate 88 02/12/25 14:20 Respiratory Rate 18 02/12/25 14:20 Blood Pressure 135/77 02/12/25 14:20 Pulse Oximetry 100 02/12/25 14:20 MDM MDM Narrative Medical decision making narrative: Patients pain and complaint coupled with physical findings are consistant with dentalgia. There are no focal signs of space occupying lesions that are compromising to the airway; no dysphagia, odynophagia, dysphonia, or dyspnea. No uvular deviation or soft palate edema. Patient is non-toxic appearing. The floor of the mouth is soft with no signs of Yoan's Angina; no induration below mandible, no neck pain. Patient is without trismus or drooling and able to swallow secretions. Patient is felt appropriate for discharge home with dental follow up. Differential Diagnosis Differential Diagnosis: Differential diagnostic considerations for dental issues include gingival abscess, dental caries, toothache, dental abscess, fracture of tooth, aphthous ulcer, TMJ. Medical Records I have reviewed the following patient records and this information was taken into consideration when formulating the assessment and plan.: previous clinic visits Discharge Plan Discharge Clinical Impression: Dental infection Patient Disposition: Home Condition: Stable Instructions: Dental Abscess (ED) Additional Instructions: Take antibiotic until it's gone. Brushing teeth at least twice daily with gentle flossing. Avoid temperature extremes---when you eat. Salt gargle to rinse your mouth after every meal You may apply ice to the face to reduce pain/swelling. For pain, you may take: Tylenol 650-1000mg by mouth every 4-6 hours. Do not exceed 4000mg in 24 hours. Advil (Ibuprofen) 600 mg by mouth every 6 hours. Do not exceed 2400mg in 24 hours. Also, recommend regular dental check up one-two times a year to prevent tooth decay and other periodontal disease. Follow-up with the dentist as soon as possible--see the list provided Patient Language: Nepalese Prescriptions: New amoxicillin-pot clavulanate 875-125 mg tablet 1 tablet PO Q12H 10 Days Qty: 20 0RF Follow-up/Referrals: Shade Philip MD [Physician, Family Practice] - 3 Days Stand Alone Forms: Work/School Release IP Time of Disposition: 14:48
== END 2025-02-12 14:50 | disposition home or self-care (01) ==
PROVIDERS: Emergency Provider Nurse Practitioner Family
DX: K04.7 Periapical abscess without sinus (principal)
CPT/HCPCS: 99213; G0463